=== PATIENT | male | born 1965 | race Caucasian/White ===

== ENCOUNTER 2018-04-05 11:39 | Day surgery (SDC) | payer MEDICAID, OTHER ==
[~2018-04-05] VITALS: Ht 175.3 cm; Wt 85.9 kg
[2018-04-05 14:03] VITALS: Ht 175.3 cm; Wt 85.9 kg
[2018-04-05] MEDS ORDERED: NO MEDS. (14:09)
[2018-04-05 14:19] VITALS: BP 116/69; PULSE 18; RESP 18
[2018-04-05] MEDS ORDERED: MIDAZOLAM 1 MG/ML 2 ML INJ ONE ×2 (15:27)
[2018-04-05] MEDS ORDERED: FENTAnyl 50 MCG/ML VIAL ONE (15:28)
[2018-04-05 15:44] VITALS: BP 122/74; PULSE 68; RESP 20
== END 2018-04-05 16:51 | disposition home or self-care (01) ==
LOC: GIL 11:39
PROVIDERS: ATTEND Internal Medicine
DX: Z12.11 Encounter for screening for malignant neoplasm of colon (principal); Z80.0 Family history of malignant neoplasm of digestive organs
CPT/HCPCS: 45378; J2250; J3010; Z7610